=== PATIENT | male | born 1950 | race Caucasian/White ===

== ENCOUNTER 2019-06-04 08:45 | Outpatient (CLI) | payer OTHER ==
--- NOTE | 2019-06-04 10:18 | Ultrasound Report ---
ULTRASOUND ABDOMEN, COMPLETE INDICATION: R10.13 EPIGASTRIC ABDOMINAL PAIN/R10.12 LUQ ABDOMINAL PAIN/R63.4W. COMPARISON: None available. FINDINGS: Pancreas: Normal. Abdominal Aorta: Normal. IVC: Normal. Liver: Normal. Gallbladder: Normal. Bile ducts: Normal. Common Bile Duct measures 2.3 mm. Right Kidney: One CM right renal cyst. Left Kidney: Normal. Spleen: Normal. Free fluid: None. Additional Findings: None. IMPRESSION: Negative for obstruction or localized inflammation. Signer Name: Jose Sanabria MD Signed: 06/04/2019 10:14 AM Workstation Name: [id number]
== END 2019-06-04 08:46 | disposition home or self-care (01) ==
LOC: US 08:45
PROVIDERS: ATTEND Internal Medicine Gastroenterology
DX: N28.1 Cyst of kidney, acquired (principal); R63.4 Abnormal weight loss; Z91.041 Radiographic dye allergy status
CPT/HCPCS: 76700